=== PATIENT | male | born 1970 | race Caucasian/White ===

== ENCOUNTER 2023-03-29 12:09 | Day surgery (SDC) | payer BC ==
[~2023-03-29] VITALS: Ht 172.7 cm; Wt 87.5 kg
[~2023-03-29 12:09] MED LIST: NS 1,000 ML IV ONE; OMEP40CA5 PO; ROSU40TA4 PO
[2023-03-29] MEDS ORDERED: fentaNYL 100 MCG/2 ML INJECTION As Ordered ONE (13:49)
[2023-03-29] MEDS ORDERED: propofoL 500 MG/50 ML VIAL As Ordered ONE (13:49)
[2023-03-29] MEDS ORDERED: LIDOCAINE 2% 100MG/5ML SDV (FOR ANES.) As Ordered ONE (13:49)
[2023-03-29 13:53] VITALS: TEMP 96.7
[2023-03-29 14:13] VITALS: BP 113/92; O2SAT 92
== END 2023-03-29 14:19 | disposition home or self-care (01) ==
LOC: M OPP 12:09
PROVIDERS: ATTEND Internal Medicine Gastroenterology
DX: K22.89 Other specified disease of esophagus (principal); R12 Heartburn; Z79.02 Long term (current) use of antithrombotics/antiplatelets
CPT/HCPCS: 43239; 88305; J3010